=== PATIENT | female | born 1980 | race Two or more races ===

== ENCOUNTER 2017-10-10 17:25 | Emergency (ER) | payer MEDICAID ==
[2017-10-10] MEDS ORDERED: Ondansetron 4 MG/2 ML SDV IVPUSH ONE (18:28)
[2017-10-10] MEDS ORDERED: Sodium Chloride 0.9% 1,000 ML IV SCH (18:30)
--- NOTE | 2017-10-10 18:37 | EDM.PDOCBH ---
ED HPI GENERAL MEDICAL PROBLEM - General Chief Complaint: Behavioral/Psych Stated Complaint: MEDICAL VIA [facility]TH Time Seen by Provider: 10/10/17 18:29 Source of Information: Reports: Patient History Limitations: Reports: No Limitations - History of Present Illness INITIAL COMMENTS - FREE TEXT/NARRATIVE: pt arrived with a history of vomiting for the past 2 days. When questioned she believes she coulf have vomited up her meds. She suddenly got up this am and felt very manic. She was very frightened with what she might do. Onset: Today, Other ( she has been nauseated and vomiting ahead of that. ) Duration: Day(s): Location: Reports: Abdomen Associated Symptoms: Reports: No Other Symptoms - Related Data Allergies Allergy/AdvReac Type Severity Reaction Status Date / Time aspirin Allergy Severe Hives Verified 03/30/13 15:29 Home Meds: Home Meds ARIPiprazole [Aripiprazole] 15 mg PO BEDTIME 10/10/17 [History] Benztropine [Cogentin] 1 mg PO BEDTIME 10/10/17 [History] Escitalopram [Lexapro] 20 mg PO DAILY 10/10/17 [History] Gabapentin [Neurontin] 600 mg PO BID 10/10/17 [History] Haloperidol [Haldol] 2 mg PO BID 10/10/17 [History] Propranolol [Inderal] 20 mg PO BID 10/10/17 [History] Simvastatin [Zocor] 40 mg PO BEDTIME 10/10/17 [History] Zolpidem [Ambien] 10 mg PO BEDTIME PRN 10/10/17 [History] lamoTRIgine 200 mg PO BID 10/10/17 [History] Past Medical History 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: Reports: Hypertension 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: Psychiatric History: Reports: Bipolar, Schizophrenia - Past Surgical History Female Surgical History: Reports: Section Social & Family History - Tobacco Use Smoking Status *Q: Current Every Day Smoker Years of Tobacco use: 20 Packs/Tins Daily: 0.5 - Caffeine Use Caffeine Use: Reports: Soda - Recreational Drug Use Recreational Drug Use: No ED ROS GENERAL - Review of Systems Review Of Systems: See Below Constitutional: Reports: No Symptoms HEENT: Reports: No Symptoms Respiratory: Reports: No Symptoms Cardiovascular: Reports: No Symptoms Endocrine: Reports: No Symptoms GI/Abdominal: Reports: No Symptoms : Reports: No Symptoms Musculoskeletal: Reports: Other (pt has severe pain in the left post cervical area and in the left shoulder. She has been very uncomfortable for the past 4-5 days. ) Skin: Reports: No Symptoms Neurological: Reports: No Symptoms ED EXAM, BEHAVIORAL HEALTH - Physical Exam Exam: See Below Text/Narrative:: pt has not had a injury and now has severe painm in the left shoulder and left post cervical area. She is not able to rest andd kinza has not been able to work. She has not had this before. Exam Limited By: No Limitations General Appearance: Alert, Anxious, Moderate Distress Ears: Normal TMs Nose: Normal Inspection Throat/Mouth: Normal Inspection Neck: Other ( pt has no nuchal rigidity) Respiratory/Chest: No Respiratory Distress Cardiovascular: Regular Rate, Rhythm GI/Abdominal: Soft, Non-Tender Back Exam: Normal Inspection Extremities: Other (p Pt has no findings with bruises or falls. ) Neurological: Alert, Normal Cognition, Oriented x 3 Psychiatric: Agitated, Other (pt is feeling very manic/ ) COURSE, BEHAVIORAL HEALTH COMP - Course Vital Signs: Last Vital Signs Temp 35.8 C 10/10/17 17:38 Pulse 88 10/10/17 17:38 Resp 16 10/10/17 17:38 BP 148/103 H 10/10/17 17:38 Pulse Ox 98 10/10/17 17:38 Orders, Labs, Meds: Active Orders 24 hr Category Date Time Status DRUG SCREEN, URINE [URCHEM] Stat Lab 10/10/17 18:29 Ordered UA W/MICROSCOPIC [URIN] Urgent Lab 10/10/17 18:29 Ordered Sodium Chloride 0.9% [Normal Saline] 1,000 ml Med 10/10/17 18:30 Active IV ASDIRECTED Medication Orders Sodium Chloride (Normal Saline) 1,000 mls @ 999 mls/hr IV ASDIRECTED EULALIA Last Admin: 10/10/17 18:51 Dose: 999 mls/hr Laboratory Tests 10/10/17 10/10/17 10/10/17 Range/Units 18:25 18:25 18:29 WBC 10.6 (4.5-11.0) K/uL RBC 5.16 (3.30-5.50) M/uL Hgb 13.4 (12.0-15.0) g/dL Hct 39.5 (36.0-48.0) % MCV 77 L (80-98) fL MCH 26 L (27-31) pg MCHC 34 (32-36) % Plt Count 287 (150-400) K/uL Neut % (Auto) 71 H (36-66) % Lymph % (Auto) 21 L (24-44) % [place] % (Auto) 6 (2-6) % Eos % (Auto) 2 (2-4) % Baso % (Auto) 0 (0-1) % Sodium 135 L (140-148) mmol/L Potassium 4.2 (3.6-5.2) mmol/L Chloride 98 L (100-108) mmol/L Carbon Dioxide 28 (21-32) mmol/L Anion Gap 13.2 (5.0-14.0) mmol/L BUN 8 (7-18) mg/dL Creatinine 0.9 (0.6-1.0) mg/dL Est Cr Clr Drug Dosing 82.42 mL/min Estimated GFR (MDRD) > 60 (>60) Glucose 171 H (74-106) mg/dL Calcium 8.9 (8.5-10.1) mg/dL Total Bilirubin 0.3 (0.2-1.0) mg/dL AST 51 H (15-37) U/L ALT 79 H (12-78) U/L Alkaline Phosphatase 128 H (46-116) U/L Total Protein 7.1 (6.4-8.2) g/dL Albumin 3.5 (3.4-5.0) g/dL Globulin 3.6 H (2.3-3.5) g/dL Albumin/Globulin Ratio 1.0 L (1.2-2.2) Urine Color Yellow Urine Appearance Clear Urine pH 7.0 (4.5-8.0) Ur Specific [place] 1.010 (1.008-1.030) Urine Protein Negative (NEGATIVE) mg/dL Urine Glucose (UA) Normal (NEGATIVE) mg/dL Urine Ketones Negative (NEGATIVE) mg/dL Urine Occult Blood Negative (NEGATIVE) Urine Nitrite Negative (NEGATIVE) Urine Bilirubin Negative (NEGATIVE) Urine Urobilinogen Normal (NORMAL) mg/dL Ur Leukocyte Esterase Negative (NEGATIVE) Urine RBC 0-5 (0-5) Urine WBC 0-5 (0-5) Ur Epithelial Cells Rare Amorphous Sediment Not seen Urine Bacteria Few Urine Mucus Not seen Urine Opiates Screen (NEGATIVE) Ur Oxycodone Screen (NEGATIVE) Urine Methadone Screen (NEGATIVE) Ur Propoxyphene Screen (NEGATIVE) Ur Barbiturates Screen (NEGATIVE) Ur Tricyclics Screen (NEGATIVE) Ur Phencyclidine Scrn (NEGATIVE) Ur Amphetamine Screen (NEGATIVE) U Methamphetamines Scrn (NEGATIVE) Urine MDMA Screen (NEGATIVE) U Benzodiazepines Scrn (NEGATIVE) U Cocaine Metab Screen (NEGATIVE) U Marijuana (THC) Screen (NEGATIVE) 10/10/17 Range/Units 18:29 WBC (4.5-11.0) K/uL RBC (3.30-5.50) M/uL Hgb (12.0-15.0) g/dL Hct (36.0-48.0) % MCV (80-98) fL MCH (27-31) pg MCHC (32-36) % Plt Count (150-400) K/uL Neut % (Auto) (36-66) % Lymph % (Auto) (24-44) % [place] % (Auto) (2-6) % Eos % (Auto) (2-4) % Baso % (Auto) (0-1) % Sodium (140-148) mmol/L Potassium (3.6-5.2) mmol/L Chloride (100-108) mmol/L Carbon Dioxide (21-32) mmol/L Anion Gap (5.0-14.0) mmol/L BUN (7-18) mg/dL Creatinine (0.6-1.0) mg/dL Est Cr Clr Drug Dosing mL/min Estimated GFR (MDRD) (>60) Glucose (74-106) mg/dL Calcium (8.5-10.1) mg/dL Total Bilirubin (0.2-1.0) mg/dL AST (15-37) U/L ALT (12-78) U/L Alkaline Phosphatase (46-116) U/L Total Protein (6.4-8.2) g/dL Albumin (3.4-5.0) g/dL Globulin (2.3-3.5) g/dL Albumin/Globulin Ratio (1.2-2.2) Urine Color Urine Appearance Urine pH (4.5-8.0) Ur Specific [place] (1.008-1.030) Urine Protein (NEGATIVE) mg/dL Urine Glucose (UA) (NEGATIVE) mg/dL Urine Ketones (NEGATIVE) mg/dL Urine Occult Blood (NEGATIVE) Urine Nitrite (NEGATIVE) Urine Bilirubin (NEGATIVE) Urine Urobilinogen (NORMAL) mg/dL Ur Leukocyte Esterase (NEGATIVE) Urine RBC (0-5) Urine WBC (0-5) Ur Epithelial Cells Amorphous Sediment Urine Bacteria Urine Mucus Urine Opiates Screen Negative (NEGATIVE) Ur Oxycodone Screen Negative (NEGATIVE) Urine Methadone Screen Negative (NEGATIVE) Ur Propoxyphene Screen Negative (NEGATIVE) Ur Barbiturates Screen Negative (NEGATIVE) Ur Tricyclics Screen Negative (NEGATIVE) Ur Phencyclidine Scrn Negative (NEGATIVE) Ur Amphetamine Screen Negative (NEGATIVE) U Methamphetamines Scrn Negative (NEGATIVE) Urine MDMA Screen Negative (NEGATIVE) U Benzodiazepines Scrn Negative (NEGATIVE) U Cocaine Metab Screen Negative (NEGATIVE) U Marijuana (THC) Screen Negative (NEGATIVE) Medications Generic Name Dose Route Start Last Admin Trade Name Freq PRN Reason Stop Dose Admin Sodium Chloride 1,000 mls @ 999 mls/hr 10/10/17 18:30 10/10/17 18:51 Normal Saline IV 999 mls/hr ASDIRECTED EULALIA Administration Discontinued Medications Generic Name Dose Route Start Last Admin Trade Name Freq PRN Reason Stop Dose Admin Aripiprazole 15 mg 10/10/17 19:26 10/10/17 19:53 Abilify PO 10/10/17 19:27 Not Given ONETIME ONE Benztropine Mesylate 1 mg 10/10/17 19:17 10/10/17 19:54 Cogentin PO 10/10/17 19:18 Not Given ONETIME ONE Haloperidol 2 mg 10/10/17 19:26 10/10/17 19:54 Haldol PO 10/10/17 19:27 Not Given ONETIME ONE Lorazepam 1 mg 10/10/17 18:38 10/10/17 19:02 Ativan PO 10/10/17 18:39 1 mg ONETIME ONE Administration Ondansetron HCl 4 mg 10/10/17 18:28 10/10/17 18:54 Zofran IVPUSH 10/10/17 18:29 4 mg ONETIME ONE Administration Medical Clearance: 10/10/17 20:07 pt was given ativan 1 mg and zoforan 4mg . Her nausea is better. She was able to have some soup and she was given her cogentin, abilify and haldol. She is feeling much calmer at this point. Her lab work looks ok. She did have a bs of 178. Departure - Departure Time of Disposition: 20:09 Disposition: Home, Self-Care 01 Condition: Fair Clinical Impression: Vomiting, Manic episode - Discharge Information Referrals: PCP,None [Primary Care Provider] - Forms: ED Department Discharge Care Plan Goals: zoforan 4 mg q6h prn for nausea, cont all meds, call if pt is not doing well. - My Orders Last 24 Hours: My Active Orders 10/10/17 18:29 DRUG SCREEN, URINE [URCHEM] Stat UA W/MICROSCOPIC [URIN] Urgent 10/10/17 18:30 Sodium Chloride 0.9% [Normal Saline] 1,000 ml IV ASDIRECTED - Assessment/Plan Last 24 Hours: My Active Orders 10/10/17 18:29 DRUG SCREEN, URINE [URCHEM] Stat UA W/MICROSCOPIC [URIN] Urgent 10/10/17 18:30 Sodium Chloride 0.9% [Normal Saline] 1,000 ml IV ASDIRECTED
[2017-10-10] MEDS ORDERED: LORazepam 1 MG Tab PO ONE (18:38)
[2017-10-10] MEDS ORDERED: Benztropine 1 MG Tab PO ONE (19:17)
[2017-10-10] MEDS ORDERED: ARIPiprazole 10 MG Tab PO ONE (19:26)
[2017-10-10] MEDS ORDERED: Haloperidol 1 MG Tab PO ONE (19:26)
== END 2017-10-10 20:18 | disposition home or self-care (01) ==
LOC: JP.ED 17:25
DX: R11.10 Vomiting, unspecified (principal); F30.9 Manic episode, unspecified; F17.210 Nicotine dependence, cigarettes, uncomplicated; I10 Essential (primary) hypertension; Z88.6 Allergy status to analgesic agent; Z79.899 Other long term (current) drug therapy
CPT/HCPCS: 36415; 80053; 80305; 81001; 85025; 96361; 96374; 99285; A9270; J2405; J7030

== ENCOUNTER 2018-05-18 07:42 | Emergency (ER) | payer MEDICAID ==
[2018-05-18] MEDS ORDERED: Acetaminophen 500 MG Tab PO ONE (08:26)
[2018-05-18] MEDS ORDERED: Ketorolac 60 MG/2 ML SDV IM ONE (08:34)
[2018-05-18] MEDS ORDERED: Fluconazole 150 MG Tab PO ONE (08:59)
--- NOTE | 2018-05-18 09:04 | EDM.PDOC ---
ED HPI GENERAL MEDICAL PROBLEM - General Chief Complaint: Genitourinary Problem Stated Complaint: BLISTERS ON BUTT Time Seen by Provider: 05/18/18 08:15 Source of Information: Reports: Patient History Limitations: Reports: No Limitations - History of Present Illness INITIAL COMMENTS - FREE TEXT/NARRATIVE: 37-year-old female with intense painful lesions on the labia bilaterally over the past 4 days. She is also having some white discharge. No fevers or chills, no abdominal pain. She has painful urination, she has not had symptoms like this in the past. She is concerned it may be an STD. Onset: Gradual Duration: Day(s): (4 days) Location: Reports: Other (vaginal introitus, bilateral labia) Associated Symptoms: Reports: Malaise, Other (Dysuria). Denies: Chest Pain, Cough, Fever/Chills, Nausea/Vomiting, Shortness of Breath, Weakness Perineal Area Pain Score (Numeric/FACES): 10 - Related Data Allergies Allergy/AdvReac Type Severity Reaction Status Date / Time aspirin Allergy Severe Hives Verified 01/15/18 18:55 Home Meds: Home Meds ARIPiprazole [Aripiprazole] 15 mg PO BEDTIME 10/10/17 [History] Benztropine [Cogentin] 1 mg PO BEDTIME 10/10/17 [History] Escitalopram [Lexapro] 20 mg PO DAILY 10/10/17 [History] Gabapentin [Neurontin] 600 mg PO BID 10/10/17 [History] Haloperidol [Haldol] 2 mg PO BID 10/10/17 [History] Propranolol [Inderal] 20 mg PO BID 10/10/17 [History] Simvastatin [Zocor] 40 mg PO BEDTIME 10/10/17 [History] Zolpidem [Ambien] 10 mg PO BEDTIME PRN 10/10/17 [History] lamoTRIgine 200 mg PO BID 10/10/17 [History] Past Medical History 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: Reports: Hypertension Gastrointestinal History: Reports: Other (See Below) Other Gastrointestinal History: states vag blister Genitourinary History: Reports: Other (See Below) Other Genitourinary History: states vag blister hurts when she pees 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: Psychiatric History: Reports: Bipolar, Schizophrenia Dermatologic History: Reports: Other (See Below) Other Dermatologic History: states blisters in vaag area - Past Surgical History Female Surgical History: Reports: Section Social & Family History - Family History Family Medical History: Noncontributory - Tobacco Use Smoking Status *Q: Current Every Day Smoker Years of Tobacco use: 20 Packs/Tins Daily: 1 - Caffeine Use Caffeine Use: Reports: Coffee - Recreational Drug Use Recreational Drug Use: No ED ROS GENERAL - Review of Systems Review Of Systems: See Below Constitutional: Reports: Malaise. Denies: Fever, Chills HEENT: Reports: No Symptoms Respiratory: Denies: Shortness of Breath, Cough Cardiovascular: Denies: Chest Pain GI/Abdominal: Denies: Abdominal Pain, Nausea, Vomiting : Reports: Dysuria. Denies: Frequency, Urinary Retention Skin: Reports: Erythema, Other (Small vesicular lesions on the vaginal mucosa) Neurological: Reports: No Symptoms Psychiatric: Reports: Anxiety ED EXAM, GENERAL - Physical Exam Exam: See Below Exam Limited By: No Limitations General Appearance: Alert, Mild Distress (Extremely uncomfortable) Head: Atraumatic Respiratory/Chest: No Respiratory Distress, Lungs Clear GI/Abdominal: Soft, Non-Tender (Female) Exam: Other (Labia majora bilaterally are erythematous with numerous small extremely tender ulcerative lesions on the mucosa. No erythema or rash and the skin creases. There is a thick white discharge vaginally.) Course - Vital Signs Last Recorded V/S: Last Vital Signs Temp 97.3 F 05/18/18 08:02 Pulse 98 05/18/18 08:02 Resp 18 05/18/18 08:02 BP 148/86 H 05/18/18 08:02 Pulse Ox - Orders/Labs/Meds Orders: Active Orders 24 hr Category Date Time Status HSV CULTURE AND TYPING Stat Lab 05/18/18 08:38 Received Meds: Medications Discontinued Medications Generic Name Dose Route Start Last Admin Trade Name Freq PRN Reason Stop Dose Admin Acetaminophen 1,000 mg 05/18/18 08:26 05/18/18 08:32 Tylenol Extra Strength PO 05/18/18 08:27 1,000 mg ONETIME ONE Administration Fluconazole 150 mg 05/18/18 08:59 05/18/18 09:34 Diflucan PO 05/18/18 09:00 150 mg ONETIME ONE Administration Ketorolac Tromethamine 60 mg 05/18/18 08:34 05/18/18 08:38 Toradol IM 05/18/18 08:35 60 mg ONETIME ONE Administration - Re-Assessments/Exams Free Text/Narrative Re-Assessment/Exam: 05/18/18 09:03 A JACK prep was obtained from the white discharge, and herpes viral culture from the ulcerations. She was given 150 mg of oral Diflucan. 05/18/18 09:05 Ultimately the JACK prep returned negative for fungal elements. She'll be started on 400 mg of acyclovir 5 times daily for at least the next 6-7 days and the test result will be communicated with the patient when available. She can return if not improving in 2-3 days. She was also given 10 hydrocodone for extra pain control. Departure - Departure Time of Disposition: 09:48 Disposition: Home, Self-Care 01 Condition: Fair Clinical Impression: HSV infection - Discharge Information Instructions: Genital Herpes Referrals: Meryl Dutton MD [Primary Care Provider] - Forms: ED Department Discharge Care Plan Goals: Recheck in 2-3 days if not improving. Take acyclovir 5 times daily for at least 7 days. Return sooner if worsening despite medication. - My Orders Last 24 Hours: My Active Orders 05/18/18 08:38 HSV CULTURE AND TYPING Stat - Assessment/Plan Last 24 Hours: My Active Orders 05/18/18 08:38 HSV CULTURE AND TYPING Stat
== END 2018-05-18 09:48 | disposition home or self-care (01) ==
LOC: JP.ED 07:42
DX: A60.04 Herpesviral vulvovaginitis (principal); I10 Essential (primary) hypertension; F17.210 Nicotine dependence, cigarettes, uncomplicated; Z88.6 Allergy status to analgesic agent; Z79.899 Other long term (current) drug therapy
CPT/HCPCS: 87210; 87255; 96372; 99283; A9270; J1885

== ENCOUNTER 2018-09-06 03:45 | Inpatient (IN) | payer MEDICAID ==
[2018-09-06] MEDS ORDERED: HYDROmorphone 1 MG/ML Syringe IVPUSH ONE (04:16)
[2018-09-06] MEDS ORDERED: Ketorolac 30 MG/ML SDV IVPUSH ONE (04:16)
[2018-09-06] MEDS ORDERED: Sodium Chloride 0.9% 10 ML Syringe FLUSH PRN (04:16)
[2018-09-06] MEDS ORDERED: Ondansetron 4 MG/2 ML SDV IVPUSH ONE (04:16)
--- NOTE | 2018-09-06 05:30 | EDM.PDOC ---
ED HPI GENERAL MEDICAL PROBLEM - General Chief Complaint: Abdominal Pain Stated Complaint: ABDOMINAL PAIN Time Seen by Provider: 09/06/18 04:15 Source of Information: Reports: Patient History Limitations: Reports: Physical Impairment (In severe pain) - History of Present Illness INITIAL COMMENTS - FREE TEXT/NARRATIVE: This woman comes in complaining of severe right upper quadrant abdominal pain. This started abruptly within about the past hour or so. She told the nurses that she's been getting the same pain for the last 3 nights at the same time in the morning but tonight it's much worse. She denies fever or chills nausea vomiting or diarrhea. Her gallbladder and a appendix are intact. right lower quadrant abd Pain Score (Numeric/FACES): 9 - Related Data Allergies Allergy/AdvReac Type Severity Reaction Status Date / Time aspirin Allergy Severe Hives Verified 09/06/18 04:01 Home Meds: Home Meds ARIPiprazole [Aripiprazole] 20 mg PO BEDTIME 10/10/17 [History] Benztropine [Cogentin] 1 mg PO BEDTIME 10/10/17 [History] Escitalopram [Lexapro] 20 mg PO DAILY 10/10/17 [History] Gabapentin [Neurontin] 600 mg PO BID 10/10/17 [History] Propranolol [Inderal] 20 mg PO BID 10/10/17 [History] Simvastatin [Zocor] 40 mg PO BEDTIME 10/10/17 [History] Zolpidem [Ambien] 10 mg PO BEDTIME PRN 10/10/17 [History] lamoTRIgine 200 mg PO BID 10/10/17 [History] Past Medical History 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: Reports: Hypertension Gastrointestinal History: Reports: Other (See Below) Other Gastrointestinal History: states vag blister Genitourinary History: Reports: Other (See Below) Other Genitourinary History: states vag blister hurts when she pees 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: Psychiatric History: Reports: Bipolar, Schizophrenia Dermatologic History: Reports: Other (See Below) Other Dermatologic History: states blisters in vaag area - Past Surgical History Female Surgical History: Reports: Section Social & Family History - Family History Family Medical History: Noncontributory - Tobacco Use Smoking Status *Q: Unknown Ever Smoked Second Hand Smoke Exposure: No - Caffeine Use Caffeine Use: Reports: Soda - Recreational Drug Use Recreational Drug Use: No ED ROS GENERAL - Review of Systems Review Of Systems: Unable To Obtain (Due to level of pain) ED EXAM, GI/ABD - Physical Exam Exam: See Below Exam Limited By: Physical Impairment (Level of pain) General Appearance: Alert, Severe Distress, Obese Eyes: Bilateral: Normal Appearance Throat/Mouth: Normal Inspection Head: Atraumatic Neck: Normal Inspection Respiratory/Chest: Lungs Clear Cardiovascular: Regular Rate, Rhythm GI/Abdominal Exam: Other (Firm tender mass estimated 5-8 cm in diameter in the right upper quadrant which resembles a distended gallbladder) Extremities: Normal Inspection Neurological: Alert, Oriented, No Motor/Sensory Deficits Psychiatric: Normal Affect Skin Exam: Warm, Dry Course - Vital Signs Last Recorded V/S: Last Vital Signs Temp 35.6 C 09/06/18 03:59 Pulse 70 09/06/18 03:59 Resp 14 09/06/18 03:59 BP 174/90 H 09/06/18 03:59 Pulse Ox 99 09/06/18 03:59 - Orders/Labs/Meds Orders: Active Orders 24 hr Category Date Time Status EKG Documentation Completion [RC] ASDIRECTED Care 09/06/18 05:43 Active Abdomen Ltd [US] Stat Exams 09/06/18 04:17 Taken UA W/MICROSCOPIC [URIN] Urgent Lab 09/06/18 04:15 Ordered Sodium Chloride 0.9% [Saline Flush] Med 09/06/18 04:16 Active 10 ml FLUSH ASDIRECTED PRN Saline Lock Insert [OM.PC] Urgent Oth 09/06/18 04:15 Ordered EKG 12 Lead [EK] Urgent Ther 09/06/18 05:42 Ordered Medication Orders Sodium Chloride (Saline Flush) 10 ml FLUSH ASDIRECTED PRN PRN Reason: Keep Vein Open Last Admin: 09/06/18 04:26 Dose: 10 ml Labs: Laboratory Tests 09/06/18 09/06/18 09/06/18 Range/Units 04:30 04:30 04:30 WBC 6.9 (4.5-11.0) K/uL RBC 4.74 (3.30-5.50) M/uL Hgb 11.9 L (12.0-15.0) g/dL Hct 36.0 (36.0-48.0) % MCV 76 L (80-98) fL MCH 25 L (27-31) pg MCHC 33 (32-36) % Plt Count 248 (150-400) K/uL Neut % (Auto) 57 (36-66) % Lymph % (Auto) 35 (24-44) % [place] % (Auto) 6 (2-6) % Eos % (Auto) 2 (2-4) % Baso % (Auto) 0 (0-1) % Sodium 139 L (140-148) mmol/L Potassium 3.7 (3.6-5.2) mmol/L Chloride 102 (100-108) mmol/L Carbon Dioxide 27 (21-32) mmol/L Anion Gap 13.7 (5.0-14.0) mmol/L BUN 7 (7-18) mg/dL Creatinine 0.9 (0.6-1.0) mg/dL Est Cr Clr Drug Dosing 78.56 mL/min Estimated GFR (MDRD) > 60 (>60) Glucose 210 H (74-106) mg/dL Calcium 8.9 (8.5-10.1) mg/dL Total Bilirubin 0.3 (0.2-1.0) mg/dL AST 26 (15-37) U/L ALT 60 (12-78) U/L Alkaline Phosphatase 115 (46-116) U/L Total Protein 6.4 (6.4-8.2) g/dL Albumin 3.2 L (3.4-5.0) g/dL Globulin 3.2 (2.3-3.5) g/dL Albumin/Globulin Ratio 1.0 L (1.2-2.2) Lipase 156 (73-393) U/L Meds: Medications Generic Name Dose Route Start Last Admin Trade Name Freq PRN Reason Stop Dose Admin Sodium Chloride 10 ml 09/06/18 04:16 09/06/18 04:26 Saline Flush FLUSH 10 ml ASDIRECTED PRN Administration Keep Vein Open Discontinued Medications Generic Name Dose Route Start Last Admin Trade Name Freq PRN Reason Stop Dose Admin Hydromorphone HCl 1 mg 09/06/18 04:16 09/06/18 04:23 Dilaudid IVPUSH 09/06/18 04:17 1 mg ONETIME ONE Administration Ketorolac Tromethamine 30 mg 09/06/18 04:16 09/06/18 04:27 Toradol IVPUSH 09/06/18 04:17 30 mg ONETIME ONE Administration Ondansetron HCl 4 mg 09/06/18 04:16 09/06/18 04:22 Zofran IVPUSH 09/06/18 04:17 4 mg ONETIME ONE Administration - Radiology Interpretation Free Text/Narrative:: Ultrasound shows a markedly enlarged gallbladder 14.6 cm in length all measurement 0.3 to centimeters there is a non-mobile gallstone in the neck. Common bile duct 7 mm impression impacted gallstone in neck of the gallbladder so 1.3 cm gallstone - Re-Assessments/Exams Free Text/Narrative Re-Assessment/Exam: 09/06/18 05:30 An IV was established. The patient received Toradol 30 mg, Dilaudid 1 mg and Zofran 4 mg IV. This gave partial pain relief. Ultrasound results pending Free Text/Narrative Re-Assessment/Exam: 09/06/18 05:[address] Spann he'll be in within an hour or so and plans to take her to surgery. I spoke with the patient and she was very dramatic when I told her the plans to remove her gallbladder and she was asking if she was going to and I just explained to her that the cholecystectomy was a common procedure in most of her friends probably have had one so now she will join them on earth and not in heaven. Departure - Departure Time of Disposition: 05:55 Disposition: Admitted As Inpatient 65 Condition: Fair Clinical Impression: Gallbladder & bile duct stone with obstruction - Discharge Information Referrals: Meryl Dutton MD [Primary Care Provider] - Forms: ED Department Discharge - My Orders Last 24 Hours: My Active Orders 09/06/18 04:15 UA W/MICROSCOPIC [URIN] Urgent Saline Lock Insert [OM.PC] Urgent 09/06/18 04:16 Sodium Chloride 0.9% [Saline Flush] 10 ml FLUSH ASDIRECTED PRN 09/06/18 04:17 Abdomen Ltd [US] Stat 09/06/18 05:42 EKG 12 Lead [EK] Urgent 09/06/18 05:43 EKG Documentation Completion [RC] ASDIRECTED - Assessment/Plan Last 24 Hours: My Active Orders 09/06/18 04:15 UA W/MICROSCOPIC [URIN] Urgent Saline Lock Insert [OM.PC] Urgent 09/06/18 04:16 Sodium Chloride 0.9% [Saline Flush] 10 ml FLUSH ASDIRECTED PRN 09/06/18 04:17 Abdomen Ltd [US] Stat 09/06/18 05:42 EKG 12 Lead [EK] Urgent 09/06/18 05:43 EKG Documentation Completion [RC] ASDIRECTED
--- NOTE | 2018-09-06 06:03 | CRLUS ---
INDICATION: Right upper quadrant pain TECHNIQUE: Ultrasound abdomen limited. Sonographic images of the right upper quadrant were obtained using hairston-scale and color Doppler images. COMPARISON: None available FINDINGS: Liver: Increased hepatic echogenicity consistent with steatosis, with coarse echotexture. No discrete hepatic lesion seen. Gallbladder: A nonmobile gallstone at the gallbladder neck. A distended gallbladder. Upper limits of normal gallbladder wall thickness. A reported positive sonographic Daniel`s sign. Common bile duct: 7 mm. Pancreas: Not well seen due to obscuring bowel gas. Right kidney: 10.8 x 4.2 x 4.7 cm. Unremarkable echotexture and cortex. No masses, stones, or hydronephrosis. IMPRESSION: A nonmobile gallstone in the gallbladder neck with gallbladder distention, upper limits of normal gallbladder wall thickness and a positive sonographic Daniel`s sign, which could represent early acute cholecystitis in the correct clinical setting. Correlate clinically. If indicated, correlate with HIDA scan. Hepatic steatosis. Coarse hepatic echotexture. Correlate for chronic hepatocellular disease. A mildly dilated CBD measuring 7 mm. Limited evaluation of the pancreas. Dictated by Christopher Wilhelm MD @ 09/06/2018 6:00:49 AM Dictated by: Christopher Wilhelm MD @ 09/06/2018 06:00:55 (Electronically Signed)
[2018-09-06] MEDS ORDERED: Sodium Chloride 0.9% 1,000 ML IV SCH (07:45)
[2018-09-06] MEDS ORDERED: Lidocaine 1% with EPINEPHrine 1:100,000 50 ML MDV ONE (08:26)
[2018-09-06] MEDS ORDERED: Bupivacaine 0.5% 50 ML MDV ONE (08:26)
[2018-09-06] MEDS ORDERED: fentaNYL 250 MCG/5 ML SDV ONE (08:54)
[2018-09-06] MEDS ORDERED: Midazolam 1 MG/ML 2 ML SDV ONE (08:54)
[2018-09-06] MEDS ORDERED: Rocuronium 50 MG/5 ML Vial ONE (08:55)
[2018-09-06] MEDS ORDERED: Propofol 200 MG/20 ML SDV ONE (08:55)
[2018-09-06] MEDS ORDERED: Dexamethasone 4 MG/ML SDV ONE (08:55)
[2018-09-06] MEDS ORDERED: Ondansetron 4 MG/2 ML SDV ONE (08:55)
[2018-09-06] MEDS ORDERED: Neostigmine Methylsulfate 1 MG/ML 5 ML Syringe ONE (08:55)
[2018-09-06] MEDS ORDERED: Glycopyrrolate 0.2 MG/ML 5 ML MDV ONE (08:55)
[2018-09-06] MEDS ORDERED: ceFAZolin 2 GM in Premix Bag 1 BAG IV ONE (09:30)
[2018-09-06] MEDS ORDERED: hydrOXYzine HCl 100 MG/2 ML SDV IM PRN (09:31)
[2018-09-06] MEDS ORDERED: Benzocaine/Cetylpyridinium/Menthol Lozenge MUCMEM PRN (09:31)
[2018-09-06] MEDS ORDERED: Acetaminophen/HYDROcodone 325-5 MG Tab PO PRN (09:31)
[2018-09-06] MEDS ORDERED: Zolpidem 5 MG Tab PO PRN (09:31)
[2018-09-06] MEDS ORDERED: Docusate Sodium 100 MG Cap PO PRN (09:31)
[2018-09-06] MEDS ORDERED: fentaNYL 100 MCG/2 ML SDV IVPUSH PRN (09:33)
[2018-09-06] MEDS ORDERED: Scopolamine 1.5 MG Transdermal Patch ONE (09:55)
[2018-09-06] MEDS ORDERED: Ketorolac 60 MG/2 ML SDV ONE (09:55)
[2018-09-06] MEDS ORDERED: Lactated Ringers 1,000 ML ONE (10:46)
--- NOTE | 2018-09-06 13:30 | OR ---
DATE OF PROCEDURE: 09/06/2018 PROCEDURE: Laparoscopic cholecystectomy. PREOPERATIVE DIAGNOSIS: Cholelithiasis, cholecystitis. POSTOPERATIVE DIAGNOSIS: Cholelithiasis, cholecystitis. COMPLICATIONS: None. 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 ANESTHESIA: General/local. RISKS: Risks, benefits, alternatives, and limitations including, but not limited to, infection, bleeding, injury to common bile duct, cystic duct leaks, possibility of open surgery, seroma, biloma, and infection postoperatively were all explained. The patient understands these risks and wished to proceed. PROCEDURE IN DETAIL: The patient was placed in supine position. A supraumbilical curvilinear incision was made. A Veress needle was used to enter the abdomen without abnormality. A drop test was performed. The abdomen was subsequently insufflated and entered using Optiview trocar. No evidence of enterotomy or injury was noted during entry. An additional 10 and two 5 mm ports were entered under direct visualization. The gallbladder was retracted cephalad. The infundibulum was retracted inferolaterally. Using blunt dissection, a "clear view"of the gallbladder was obtained with a single pulsatile structure entering the gallbladder and a single nonpulsatile structure entering the gallbladder. These were clipped x3 and subsequently transected. The remainder of the gallbladder was removed off the gallbladder bed using electrocautery. This was delivered through the superior port without abnormality. The abdomen was then thoroughly irrigated. The pressure was then dropped to 7 and the gallbladder bed was inspected for bleeding abnormality, which none was noted. The air was removed after inspecting the entrance site again. The wounds were then thoroughly irrigated, closed with 3-0 Vicryl and 4-0 Vicryl interrupted running fashion. Dermabond was applied. The patient tolerated the procedure well. Junior Spann MD /[id number]
--- NOTE | 2018-09-06 13:46 | OR ---
DATE OF PROCEDURE: 09/06/2018 PROCEDURE PERFORMED: Transversus abdominis plane block. COMPLICATIONS: None. 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 PREOPERATIVE DIAGNOSIS: Postop pain requirements. POSTOPERATIVE DIAGNOSIS: Postop pain requirements. RISKS: Risks, benefits, alternatives, and limitations including, but not limited to, infection, bleeding, and injury to abdominal structures were explained to the patient who wished to proceed. PROCEDURE IN DETAIL: The patient was placed in supine position. The left transversus plane was identified first. This was identified by nurse using 11 megahertz ultrasound probe. The needle was advanced under direct visualization. This was then injected with approximately 80% of solution. The other side was then addressed in same manner, same fashion, same technique in the same sequence using the same equipment except for different needle and syringe. Approximately 80% was injected on this side too. The patient tolerated the procedure well. Junior Spann MD /[id number]
== END 2018-09-06 15:08 | disposition home or self-care (01) | DRG 419 ==
LOC: JP.ED 03:45 → JP.2SS 08:21
PROVIDERS: ADMIT Surgery; ATTEND Surgery
PROC: 0FT44ZZ Resection of Gallbladder, Percutaneous Endoscopic Approach (ICD-10-PCS; principal; 2018-09-06)
DX: K80.10 Calculus of gallbladder with chronic cholecystitis without obstruction (principal); F31.9 Bipolar disorder, unspecified; F20.9 Schizophrenia, unspecified; Z88.8 Allergy status to other drugs, medicaments and biological substances; Z87.42 Personal history of other diseases of the female genital tract
CPT/HCPCS: 36415; 76705; 80053; 81001; 81025; 83690; 85025; 93005; 96361; 96374; 96375; 99285-25; A9270-GY; J0171; J0690; J1100; J1170; J1885; J2250; J2405; J2704; J2710; J2795; J3010; J3490; J7030; J7050; J7120

== ENCOUNTER 2019-01-04 16:38 | Emergency (ER) | payer MEDICAID ==
--- NOTE | 2019-01-04 17:35 | EDM.PDOC ---
ED HPI GENERAL MEDICAL PROBLEM - General Chief Complaint: General Stated Complaint: RING STUCK Time Seen by Provider: 01/04/19 17:30 Source of Information: Reports: Patient History Limitations: Reports: No Limitations - History of Present Illness INITIAL COMMENTS - FREE TEXT/NARRATIVE: pt has a cheap ring on her ring finger of her left hand. She feels like it is very tight and she wants it cut off. Onset: Other (happened over the weekend. ) Duration: Hour(s): Location: Reports: Upper Extremity, Left Associated Symptoms: Reports: No Other Symptoms - Related Data Allergies Allergy/AdvReac Type Severity Reaction Status Date / Time aspirin Allergy Severe Hives Verified 01/04/19 16:59 Home Meds: Home Meds ARIPiprazole [Aripiprazole] 20 mg PO BEDTIME 10/10/17 [History] Benztropine [Cogentin] 1 mg PO BEDTIME 10/10/17 [History] Gabapentin [Neurontin] 600 mg PO BID 10/10/17 [History] Propranolol [Inderal] 20 mg PO BID 10/10/17 [History] Simvastatin [Zocor] 40 mg PO BEDTIME 10/10/17 [History] Zolpidem [Ambien] 10 mg PO BEDTIME PRN 10/10/17 [History] lamoTRIgine 200 mg PO BID 10/10/17 [History] Past Medical History HEENT History: Reports: Impaired Vision 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: Reports: Hypertension Gastrointestinal History: Reports: Other (See Below) Other Gastrointestinal History: states vag blister Genitourinary History: Reports: Other (See Below) Other Genitourinary History: states vag blister hurts when she pees 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: Psychiatric History: Reports: Anxiety, Bipolar, Depression, Panic Attack, Schizophrenia Endocrine/Metabolic History: Reports: Obesity/BMI 30+ Dermatologic History: Reports: Other (See Below) Other Dermatologic History: states blisters in vaag area - Past Surgical History Head Surgeries/Procedures: Reports: None HEENT Surgical History: Reports: None Cardiovascular Surgical History: Reports: None GI Surgical History: Reports: Cholecystectomy Female Surgical History: Reports: Section Endocrine Surgical History: Reports: None Dermatological Surgical History: Reports: None Social & Family History - Family History Family Medical History: Noncontributory - Tobacco Use Smoking Status *Q: Current Every Day Smoker Years of Tobacco use: 4 Packs/Tins Daily: 0.3 Used Tobacco, but Quit: No Second Hand Smoke Exposure: Yes - Caffeine Use Caffeine Use: Reports: Coffee, Energy Drinks, Soda, Tea - Alcohol Use Days Per Week of Alcohol Use: 1 Number of Drinks Per Day: 1 Total Drinks Per Week: 1 - Recreational Drug Use Recreational Drug Use: No ED ROS GENERAL - Review of Systems Review Of Systems: See Below Constitutional: Reports: No Symptoms HEENT: Reports: No Symptoms Respiratory: Reports: No Symptoms Cardiovascular: Reports: No Symptoms Endocrine: Reports: No Symptoms GI/Abdominal: Reports: No Symptoms : Reports: No Symptoms Musculoskeletal: Reports: Other (pt has a ring on her ) Skin: Reports: No Symptoms ED EXAM, GENERAL - Physical Exam Exam: See Below Free Text/Narrative:: pt arrived with pain in her left ring finger. She had a ring put on that was too tight. Exam Limited By: No Limitations General Appearance: Alert, Mild Distress Ears: Normal TMs Nose: Normal Inspection Throat/Mouth: Normal Inspection Head: Atraumatic Neck: Normal Inspection Respiratory/Chest: No Respiratory Distress Cardiovascular: Regular Rate, Rhythm GI/Abdominal: Soft, Non-Tender (Female) Exam: Deferred Extremities: Other ( She has a tight ring on her left ring finger. ) Neurological: Alert, Oriented, Normal Cognition Psychiatric: Normal Affect Course - Vital Signs Last Recorded V/S: Last Vital Signs Temp 36.6 C 01/04/19 17:01 Pulse 86 01/04/19 17:01 Resp 18 01/04/19 17:01 BP 159/86 H 01/04/19 17:01 Pulse Ox 100 01/04/19 17:01 - Re-Assessments/Exams Free Text/Narrative Re-Assessment/Exam: 01/04/19 17:36 ring was cut off without difficulty. Departure - Departure Time of Disposition: 18:05 Disposition: Home, Self-Care 01 Condition: Fair Clinical Impression: Ring avulsion injury of finger - Discharge Information Referrals: Meryl Dutton MD [Primary Care Provider] - Forms: ED Department Discharge Care Plan Goals: soak hand rtc if problems.
== END 2019-01-04 18:03 | disposition home or self-care (01) ==
LOC: JP.ED 16:38
DX: S61.205A Unspecified open wound of left ring finger without damage to nail, initial encounter (principal); I10 Essential (primary) hypertension; E66.9 Obesity, unspecified; F17.210 Nicotine dependence, cigarettes, uncomplicated; Z88.6 Allergy status to analgesic agent; Z79.899 Other long term (current) drug therapy; Z68.36 Body mass index [BMI] 36.0-36.9, adult; X58.XXXA Exposure to other specified factors, initial encounter
CPT/HCPCS: 99282

== ENCOUNTER 2019-08-31 13:28 | Emergency (ER) | payer MEDICAID | END 2019-08-31 15:31 | disposition left against medical advice (07) | LOC: JP.ED 13:28 | DX: Z53.21 Procedure and treatment not carried out due to patient leaving prior to being seen by health care provider (principal) ==

== ENCOUNTER 2019-09-09 14:08 | Emergency (ER) | payer MEDICAID ==
[2019-09-09] MEDS ORDERED: diphenhydrAMINE 25 MG Cap PO ONE (14:44)
[2019-09-09] MEDS ORDERED: LORazepam 1 MG Tab PO ONE (14:44)
[2019-09-09] MEDS ORDERED: Haloperidol 5 MG Tab PO ONE (14:44)
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
== END 2019-09-09 17:37 | disposition home or self-care (01) ==
LOC: JP.ED 14:08
DX: F30.9 Manic episode, unspecified (principal); F41.0 Panic disorder [episodic paroxysmal anxiety]; F20.9 Schizophrenia, unspecified; F17.210 Nicotine dependence, cigarettes, uncomplicated; E66.9 Obesity, unspecified; I10 Essential (primary) hypertension; Z68.38 Body mass index [BMI] 38.0-38.9, adult; Z88.6 Allergy status to analgesic agent; Z79.899 Other long term (current) drug therapy
CPT/HCPCS: 80175; 93005; 99285; A9270; 36415

== ENCOUNTER 2019-11-18 20:05 | Emergency (ER) | payer MEDICAID ==
--- NOTE | 2019-11-18 21:03 | EDM.PDOC ---
ED HPI GENERAL MEDICAL PROBLEM - General Chief Complaint: Skin Complaint Stated Complaint: LT UNDERARM PAIN Time Seen by Provider: 11/18/19 20:50 Source of Information: Reports: Patient, Old Records, RN History Limitations: Reports: No Limitations - History of Present Illness INITIAL COMMENTS - FREE TEXT/NARRATIVE: 39 yo female here with some L axillary draining abscesses. Says they stink. Has not been to the clinic for this. No fever. Onset: Gradual Onset Date: 11/17/19 Duration: Hour(s):, Getting Worse Location: Reports: Upper Extremity, Left (axilla) Quality: Reports: Sharp Severity: Moderate Improves with: Reports: None Worsens with: Reports: Other (touching area) Context: Reports: Other (See HPI) Associated Symptoms: Reports: Rash (under arm on left). 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: Reports: Other (see below) (none) Left Axillary Pain Score (Numeric/FACES): 8 - Related Data Allergies Allergy/AdvReac Type Severity Reaction Status Date / Time aspirin Allergy Severe Hives Verified 11/18/19 20:42 Home Meds: Home Meds ARIPiprazole [Aripiprazole] 20 mg PO BEDTIME 10/10/17 [History] Benztropine [Cogentin] 1 mg PO BEDTIME 10/10/17 [History] Gabapentin [Neurontin] 300 mg PO BID 10/10/17 [History] Propranolol [Inderal] 20 mg PO TID 10/10/17 [History] Simvastatin [Zocor] 40 mg PO BEDTIME 10/10/17 [History] Zolpidem [Ambien] 10 mg PO BEDTIME PRN 10/10/17 [History] lamoTRIgine 200 mg PO BID 10/10/17 [History] Lisdexamfetamine [Vyvanse] 50 mg PO DAILY #1 cap 09/09/19 [Rx] haloperidoL [Haldol] 5 mg PO ONETIME #1 tab 09/09/19 [Rx] Past Medical History HEENT History: Reports: Impaired Vision 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: Reports: High Cholesterol, Hypertension Gastrointestinal History: Reports: Other (See Below) Other Gastrointestinal History: states vag blister Genitourinary History: Reports: Other (See Below) Other Genitourinary History: states vag blister hurts when she pees 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: Psychiatric History: Reports: Anxiety, Bipolar, Depression, Panic Attack, Schizophrenia, Suicidal Ideation Endocrine/Metabolic History: Reports: Obesity/BMI 30+ Dermatologic History: Reports: Other (See Below) Other Dermatologic History: states blisters in vaag area - Infectious Disease History Infectious Disease History: Reports: Chicken Pox - Past Surgical History GI Surgical History: Reports: Cholecystectomy Female Surgical History: Reports: Section Dermatological Surgical History: Reports: None Social & Family History - Family History Family Medical History: Noncontributory - Tobacco Use Smoking Status *Q: Current Every Day Smoker Years of Tobacco use: 20 Packs/Tins Daily: 1 Used Tobacco, but Quit: No Second Hand Smoke Exposure: Yes - Caffeine Use Caffeine Use: Reports: Coffee, Energy Drinks, Soda, Tea - Recreational Drug Use Recreational Drug Use: No ED ROS GENERAL - Review of Systems Review Of Systems: See Below Constitutional: Reports: No Symptoms Skin: Reports: Erythema (pustules L axilla, some drainage.), Lumps (abscesses, small, L axilla) ED EXAM, SKIN/RASH Exam: See Below Exam Limited By: No Limitations General Appearance: Alert, WD/WN, No Apparent Distress, Anxious Eye Exam: Bilateral Eye: Normal Inspection Ears: Normal External Exam, Normal Canal, Hearing Grossly Normal Nose: Normal Inspection, No Blood Throat/Mouth: Normal Inspection, Normal Lips, Normal Oropharynx, Normal Voice, No Airway Compromise Head: Atraumatic, Normocephalic Neck: Normal Inspection Respiratory/Chest: No Respiratory Distress, Lungs Clear, Normal Breath Sounds, No Accessory Muscle Use Cardiovascular: Regular Rate, Rhythm, No Edema Extremities: Normal Inspection Neurological: Alert, Oriented, CN II-XII Intact, Normal Cognition, No Motor/Sensory Deficits Psychiatric: Anxious Skin: Warm, Other (a few small abscesses L axilla with some drainage reported. Not enough drainage to culture. ) Location, Skin: Other (L axilla) Characteristics: Papular (small abscesses) Associated features: Tenderness Course - Vital Signs Last Recorded V/S: Last Vital Signs Temp 36.7 C 11/18/19 20:50 Pulse 105 H 11/18/19 20:50 Resp 18 11/18/19 20:50 BP 143/56 H 11/18/19 20:50 Pulse Ox 97 11/18/19 20:50 - Orders/Labs/Meds Labs: Laboratory Tests 11/18/19 Range/Units 20:59 POC Glucose 173 H (74-106) MG/DL Departure - Departure Time of Disposition: 21:15 Disposition: Home, Self-Care 01 Condition: Good Clinical Impression: Abscess of left axilla, Elevated blood sugar - Discharge Information *PRESCRIPTION DRUG MONITORING PROGRAM REVIEWED*: No *COPY OF PRESCRIPTION DRUG MONITORING REPORT IN PATIENT AIRAM: No Instructions: Skin Abscess, [id number] Referrals: PCP,None [Primary Care Provider] - Forms: ED Department Discharge Additional Instructions: Take the TMP/SMZ antibiotic every 12 hrs. Wash your axilla with soap and water several times daily. F/U with your provider to discuss management of your di abetes([id number]) and to make sure you are improving with your infection. Take ibuprofen 400 mg every 6 hrs with food and either acetaminophen OR Percocet for pain relief. Avoid concentrated sweets or starchy foods until you are rechecked in the clinic. Sepsis Event Note (ED) - Evaluation Sepsis Screening Result: No Definite Risk - Focused Exam Vital Signs: Vital Signs Temp Pulse Resp BP Pulse Ox 11/18/19 20:50 36.7 C 105 H 18 143/56 H 97 11/18/19 20:28 36.7 C 105 H 18 143/56 H 97
== END 2019-11-18 21:30 | disposition home or self-care (01) ==
LOC: JP.ED 20:05
DX: L02.412 Cutaneous abscess of left axilla (principal); R73.9 Hyperglycemia, unspecified; E78.00 Pure hypercholesterolemia, unspecified; I10 Essential (primary) hypertension; F31.9 Bipolar disorder, unspecified; F41.9 Anxiety disorder, unspecified; E66.9 Obesity, unspecified; F20.9 Schizophrenia, unspecified; Z68.38 Body mass index [BMI] 38.0-38.9, adult; F17.210 Nicotine dependence, cigarettes, uncomplicated; Z88.6 Allergy status to analgesic agent
CPT/HCPCS: 82962; 99283

== ENCOUNTER 2020-05-25 10:23 | Emergency (ER) | payer MEDICAID | END 2020-05-25 11:05 | disposition home or self-care (01) | LOC: JP.ED 10:23 | DX: Z53.21 Procedure and treatment not carried out due to patient leaving prior to being seen by health care provider (principal) ==

== ENCOUNTER 2020-12-21 20:54 | Emergency (ER) | payer MEDICAID ==
[2020-12-21] MEDS ORDERED: Azithromycin 250 MG Tab PO ONE (22:46)
--- NOTE | 2020-12-21 22:56 | EDM.PDOC ---
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 The patient states that she has been having consensual relations with several individuals and believes that she may have contracted something. She complains of severe pelvic pain and burning. She initially thought that she had a urinary tract infection so she drink cranberry juice, however, this did not clear her symptoms. She does not have any urgency or frequency just vaginal burning. She then thought she may have had a vaginal yeast infection and did the Monistat 1 but also had no relief. During this time her pain is consistently gotten worse now to the point where she cannot sleep at night and has pain with even walking. She states that she has had a fever as high as 100.2 F. She has had some nausea but no vomiting. She denies any constipation or diarrhea. Not experienced any back pain. She does have a history for genital herpes but does not believe that she has an outbreak as there are no external lesions that she can see. She does report having a thick white discharge that is nonmalodorous. - Related Data Allergies Allergy/AdvReac Type Severity Reaction Status Date / Time aspirin Allergy Severe Hives Verified 12/21/20 21:04 bupropion Allergy Cannot Verified 12/21/20 21:04 Remember Home Meds: Home Meds Gabapentin [Neurontin] 600 mg PO BID 10/10/17 [History] Propranolol [Inderal] 20 mg PO TID 10/10/17 [History] Zolpidem [Ambien] 10 mg PO BEDTIME PRN 10/10/17 [History] lamoTRIgine 200 mg PO BID 10/10/17 [History] haloperidoL [Haldol] 5 mg PO ONETIME #1 tab 09/09/19 [Rx] Acetaminophen [Tylenol] 650 mg PO Q6H PRN 07/12/20 [History] Calcium Carbonate/Vitamin D3 [Calcium 600-Vit D3 200 Tablet] 1 each PO BID 07/12/20 [History] Docusate Sodium [Colace] 100 mg PO BID 07/12/20 [History] Doxycycline Monohydrate [Monodox] 100 mg PO BID 07/12/20 [History] Ibuprofen 800 mg PO Q8H PRN 07/12/20 [History] Lisdexamfetamine [Vyvanse] 70 mg PO DAILY 07/12/20 [History] Multivitamin [Multi-Day Vitamins] 1 each PO DAILY 07/12/20 [History] Past Medical History HEENT History: Reports: Impaired Vision 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: Reports: High Cholesterol, Hypertension Gastrointestinal History: Reports: Other (See Below) Other Gastrointestinal History: states vag blister Genitourinary History: Reports: Other (See Below) Other Genitourinary History: states vag blister hurts when she pees [employer] History: Reports: Psychiatric History: Reports: Anxiety, Bipolar, Depression, Panic Attack, Schizophrenia, Suicidal Ideation Endocrine/Metabolic History: Reports: Obesity/BMI 30+ Dermatologic History: Reports: Other (See Below) Other Dermatologic History: states blisters in vaag area - Infectious Disease History Infectious Disease History: Reports: Chicken Pox - Past Surgical History Head Surgeries/Procedures: Reports: None HEENT Surgical History: Reports: None Cardiovascular Surgical History: Reports: None GI Surgical History: Reports: Cholecystectomy Female Surgical History: Reports: Section Endocrine Surgical History: Reports: None Dermatological Surgical History: Reports: None Social & Family History - Family History Family Medical History: No Pertinent Family History - Tobacco Use Tobacco Use Status *Q: Current Every Day Tobacco User Years of Tobacco use: 7 Packs/Tins Daily: 0.5 - Caffeine Use Caffeine Use: Reports: Coffee, Soda - Recreational Drug Use Recreational Drug Use: No ED ROS GENERAL - Review of Systems Review Of Systems: See Below Constitutional: Reports: Fever, Malaise HEENT: Reports: No Symptoms Respiratory: Reports: No Symptoms Cardiovascular: Reports: No Symptoms Endocrine: Reports: No Symptoms GI/Abdominal: Reports: No Symptoms : Reports: Pain (Pelvic pain), Other (Thick white vaginal discharge vaginal itching and burning) Musculoskeletal: Reports: No Symptoms Skin: Reports: No Symptoms Neurological: Reports: No Symptoms Psychiatric: Reports: No Symptoms Hematologic/Lymphatic: Reports: No Symptoms Immunologic: Reports: No Symptoms ED EXAM, RENAL/ - Physical Exam Exam: See Below Exam Limited By: No Limitations General Appearance: Alert, Anxious, Moderate Distress Eye Exam: Bilateral Eye: EOMI Head: Atraumatic, Normocephalic Respiratory/Chest: No Respiratory Distress, Lungs Clear, Normal Breath Sounds Cardiovascular: Normal Peripheral Pulses, Regular Rate, Rhythm, No Murmur GI/Abdominal: Normal Bowel Sounds, Soft, Non-Tender (Female) Exam: Cervical Discharge, Cervix Motion Tenderness, Vaginal Discharge (Thick white vaginal discharge). No: Adnexal Mass, Adnexal Tenderness Back Exam: Normal Inspection Course - Vital Signs Last Recorded V/S: Last Vital Signs Temp 35.7 C L 12/21/20 21:07 Pulse 103 H 12/21/20 21:07 Resp 18 12/21/20 21:07 BP 150/104 H 12/21/20 21:07 Pulse Ox 98 12/21/20 21:07 - Orders/Labs/Meds Orders: Active Orders 24 hr Category Date Time Status CHLAMYDIA/GC AMPLIFICATION Stat Lab 12/21/20 21:40 Ordered WET PREP [MYC] Stat Lab 12/21/20 21:40 Ordered Meds: Medications Discontinued Medications Generic Name Dose Route Start Last Admin Trade Name Drea PRN Reason Stop Dose Admin Azithromycin 1,000 mg 12/21/20 22:46 Azithromycin 250 Mg Tab PO 12/21/20 22:47 ONETIME ONE - Re-Assessments/Exams Free Text/Narrative Re-Assessment/Exam: 12/21/20 22:53 examination, the patient has very significant cervical motion tenderness consistent with pelvic inflammatory disease. We will treat her with azithromycin 1 g p.o. and doxycycline 100 mg twice daily for 14 days. Patient is requesting something for pain due to the PID so we will put her on hydrocodone 1 tablet every 4 hours as needed for severe pain dispensing 8 tablets. These were sent out the [facility]. Departure - Departure Time of Disposition: 22:54 Disposition: Home, Self-Care 01 Clinical Impression: Pelvic inflammatory disease (PID) - Discharge Information Instructions: Sexually Transmitted Disease, [id number], Pelvic Inflammatory Disease Referrals: PCP,None [Primary Care Provider] - Care Plan Goals: You likely have contracted either chlamydia or gonorrhea causing your pelvic inflammatory disease. We are going to treat this with azithromycin 1 g by mouth now and doxycycline 100 mg twice daily to start tonight. Doxycycline is available in the [facility] machine in the lobby. In addition I have prescribed hydrocodone for pain. The prescription is for 8 tablets total. I would inform your partners that they should be checked for gonorrhea and chlamydia as well and be treated. Sepsis Event Note (ED) - Evaluation Sepsis Screening Result: No Definite Risk - Focused Exam Vital Signs: Vital Signs Temp Pulse Resp BP Pulse Ox 12/21/20 21:07 35.7 C L 103 H 18 150/104 H 98 - Problem List & Annotations (1) Pelvic inflammatory disease (PID) SNOMED Code(s): 001419429 Code(s): N73.9 - FEMALE PELVIC INFLAMMATORY DISEASE, UNSPECIFIED Status: Acute Priority: Medium Current Visit: Yes - Problem List Review Problem List Initiated/Reviewed/Updated: Yes - My Orders Last 24 Hours: My Active Orders 12/21/20 21:40 CHLAMYDIA/GC AMPLIFICATION Stat WET PREP [MYC] Stat - Assessment/Plan Last 24 Hours: My Active Orders 12/21/20 21:40 CHLAMYDIA/GC AMPLIFICATION Stat WET PREP [MYC] Stat
[2020-12-24 14:09] LABS: CHLAMYDIA TRACHOMATIS, NAA Negative (Negative); NEISSERIA GONORRHOEAE, NAA Negative (Negative)
== END 2020-12-21 23:08 | disposition home or self-care (01) ==
LOC: JP.ED 20:54
DX: N73.9 Female pelvic inflammatory disease, unspecified (principal); E78.00 Pure hypercholesterolemia, unspecified; I10 Essential (primary) hypertension; E66.9 Obesity, unspecified; Z68.30 Body mass index [BMI] 30.0-30.9, adult; Z88.8 Allergy status to other drugs, medicaments and biological substances; Z72.0 Tobacco use
CPT/HCPCS: 87210; 87491; 87591; 99284; A9270

== ENCOUNTER 2022-09-10 09:55 | Emergency (ER) | payer MEDICAID | END 2022-09-10 10:49 | disposition home or self-care (01) | LOC: JP.ED 09:55 | DX: L29.9 Pruritus, unspecified (principal); E78.00 Pure hypercholesterolemia, unspecified; I10 Essential (primary) hypertension; E66.9 Obesity, unspecified; Z68.30 Body mass index [BMI] 30.0-30.9, adult; Z88.8 Allergy status to other drugs, medicaments and biological substances; Z72.0 Tobacco use | CPT/HCPCS: 99282 ==

== ENCOUNTER 2023-04-20 17:22 | Emergency (ER) | payer MEDICAID | END 2023-04-20 18:17 | disposition home or self-care (01) | LOC: JP.ED 17:22 | DX: J40 Bronchitis, not specified as acute or chronic (principal); I10 Essential (primary) hypertension; E78.00 Pure hypercholesterolemia, unspecified; E66.9 Obesity, unspecified; Z68.34 Body mass index [BMI] 34.0-34.9, adult; F17.200 Nicotine dependence, unspecified, uncomplicated; Z90.49 Acquired absence of other specified parts of digestive tract; Z79.899 Other long term (current) drug therapy; Z88.8 Allergy status to other drugs, medicaments and biological substances | CPT/HCPCS: 99283 ==

== ENCOUNTER 2023-09-13 11:26 | Emergency (ER) | payer MEDICAID | END 2023-09-13 12:06 | disposition home or self-care (01) | LOC: JP.ED 11:26 | DX: R60.9 Edema, unspecified (principal); I10 Essential (primary) hypertension; F17.210 Nicotine dependence, cigarettes, uncomplicated; Z88.6 Allergy status to analgesic agent; Z88.8 Allergy status to other drugs, medicaments and biological substances; Z79.899 Other long term (current) drug therapy; Z90.49 Acquired absence of other specified parts of digestive tract | CPT/HCPCS: 99283 ==

== ENCOUNTER 2024-01-21 23:07 | Emergency (ER) | payer MEDICAID ==
[2024-01-21] MEDS: Bacitracin Oint 1 GM U/D Packet TOP ONE (23:41)
== END 2024-01-22 00:09 | disposition home or self-care (01) ==
LOC: JP.ED 23:07
DX: S91.341A Puncture wound with foreign body, right foot, initial encounter (principal); I10 Essential (primary) hypertension; F17.210 Nicotine dependence, cigarettes, uncomplicated; Z88.8 Allergy status to other drugs, medicaments and biological substances; Z79.899 Other long term (current) drug therapy; Z90.49 Acquired absence of other specified parts of digestive tract; W25.XXXA Contact with sharp glass, initial encounter
CPT/HCPCS: 99283

== ENCOUNTER 2024-06-18 18:39 | Emergency (ER) | payer MEDICAID ==
[2024-06-18] MEDS: Cephalexin 250 MG Cap PO ONE (20:01)
[2024-06-18] MEDS: Dexamethasone 4 MG/ML SDV IVPUSH ONE (20:02)
== END 2024-06-18 20:12 | disposition home or self-care (01) ==
LOC: JP.ED 18:39
DX: L08.9 Local infection of the skin and subcutaneous tissue, unspecified (principal); S50.861A Insect bite (nonvenomous) of right forearm, initial encounter; S40.861A Insect bite (nonvenomous) of right upper arm, initial encounter; I10 Essential (primary) hypertension; Z88.6 Allergy status to analgesic agent; Z88.8 Allergy status to other drugs, medicaments and biological substances; F17.210 Nicotine dependence, cigarettes, uncomplicated; Z79.899 Other long term (current) drug therapy; W57.XXXA Bitten or stung by nonvenomous insect and other nonvenomous arthropods, initial encounter; Y93.89 Activity, other specified
CPT/HCPCS: 96374; 99282; A9270; J1100; 99283

== ENCOUNTER 2024-09-06 18:30 | Emergency (ER) | payer MEDICAID | END 2024-09-06 18:45 | disposition left against medical advice (07) | LOC: JP.ED 18:30 | DX: Z53.21 Procedure and treatment not carried out due to patient leaving prior to being seen by health care provider (principal) ==